=== PATIENT | male | born 1980 | race African-American/Black ===

== ENCOUNTER 2016-12-29 05:46 | Day surgery (SDC) | payer OTHER, SELFPAY ==
[~2016-12-29] VITALS: Ht 185.4 cm; Wt 88.5 kg
[2016-12-29] VITALS (12 sets, daily range): BP systolic 107–133; BP diastolic 59–88
[~2016-12-29 05:46] MED LIST: NKM
[2016-12-29] MEDS ORDERED: LR 1000ml 1,000 ML IVLG SCH (06:58)
--- NOTE | 2016-12-29 06:58 | Anethesia Preoperative Eval ---
Anesthesia Pre-op PMH/ROS General Date of Evaluation: Dec 29, 2016 Time of Evaluation: 07:41 Anesthesiologist: Sharif ASA Score: ASA 1 Mallampati Score Class I : Soft palate, uvula, fauces, pillars visible Class II: Soft palate, uvula, fauces visible Class III: Soft palate, base of uvula visible Class IV: Only hard plate visible Mallampati Classification: Class I Surgeon: Ronda Diagnosis: Bilateral Knee Pain Surgical Procedure: Bilateral Knee Atrhroscopy, Chondroplasty, Stem cell Injection Family History: no anesthesia problems Allergies: Coded Allergies: No Known Allergies (Unverified , 12/28/16) Medications: see eMAR Past Medical History PSxH Narrative: L Knee Arthroscopy Anesthesia Pre-op Phys. Exam Physician Exam Last Vital Signs Date Time Temp Pulse Resp B/P (MAP) Pulse Ox O2 Delivery O2 Flow Rate FiO2 12/29/16 06:35 98.1 58 20 133/78 100 Room Air Constitutional: NAD Neurologic: CN 2-12 intact Cardiovascular: RRR Respiratory: CTA Gastrointestinal: S/NT/ND Airway Exam Mallampati Score: Class I MO: full ROM: full Teeth: intact Anesthesia Pre-op A/P Risk Assessment & Plan Assessment: ASA 1 Plan: GA, BIS Status Change Before Surgery: No Pre-Antibiotics Dru grams Ancef IV Given Within 1 Hr of Incision: Yes Time Given: 07:56 Esa Olguin MD Dec 29, 2016 06:58
[2016-12-29] MEDS ORDERED: Norco 7.5mg/325mg tab ORAL PRN (07:00)
[2016-12-29] MEDS ORDERED: Atropine Inj 1mg/10ml Syr IV PRN (07:00)
[2016-12-29] MEDS ORDERED: fentaNYL 100 mcg/2 mL IV PRN (07:00)
[2016-12-29] MEDS ORDERED: Ketorolac 30mg Inj IV PRN (07:00)
[2016-12-29] MEDS ORDERED: LORazepam Inj 2mg/ml 1ml IV PRN (07:00)
[2016-12-29] MEDS ORDERED: Midazolam 2mg/2ml Inj IVP PRN (07:00)
[2016-12-29] MEDS ORDERED: Norco 5mg/325mg tab ORAL PRN ×2 (07:00→13:01)
[2016-12-29] MEDS ORDERED: Ketorolac 60mg Inj IV PRN (07:00)
[2016-12-29] MEDS ORDERED: Metoclopramide 10mg/2ml Inj IVP PRN (07:00)
[2016-12-29] MEDS ORDERED: DiphenhydrAMINE 50mg/ml Inj IVP PRN (07:00)
[2016-12-29] MEDS ORDERED: oxyCODONE HCL/Acetaminophen 5/325mg ORAL PRN (07:00)
[2016-12-29] MEDS ORDERED: Bupivacaine 0.5% Inj 30 ml vial INJ ONE (07:11)
[2016-12-29] MEDS ORDERED: Bupivacaine w/Epi 0.5% 30ml Vial INJ ONE (07:11)
[2016-12-29] MEDS ORDERED: EPINEPHrine 1mg/1ml Amp ONE (07:11)
[2016-12-29 07:13] LABS: ANION GAP 6 (5-15); CALCIUM 9.5 MG/DL (8.5-10.1); CARBON DIOXIDE 30 MMOL/L (21-32); CHLORIDE 103 MMOL/L (98-107); CREATININE 1.3 MG/DL (0.55-1.30); GLOMERULAR FILTRATION RATE > 60 mL/min (>60); POTASSIUM 4.3 MMOL/L (3.5-5.1); SODIUM 139 MMOL/L (136-145)
[2016-12-29 07:22] LABS: PROTHROMBIN TIME 10.5 SEC (9.30-11.50)
--- NOTE | 2016-12-29 07:30 | Pre-Procedure Note/Attestation ---
Pre-Procedure Note/Attestation Complete Prior to Procedure Planned Procedure: bilateral Procedure Narrative: bilateral knee scope with debridement and stem cell Indications for Procedure Pre-Operative Diagnosis: bilateral knee OA Attestation I attest that I discussed the nature of the procedure; its benefits; risks and complications; and alternatives (and the risks and benefits of such alternatives ), prior to the procedure, with the patient (or the patient's legal termite control service representative). I attest that, if there was a reasonable possibility of needing a blood transfusion, the patient (or the patient's legal termite control service representative) was given the [facility] standardized written summary, pursuant to the [employer] [place] Blood Safety Act ([place] Health and Safety Code # 1645, as amended). I attest that I re-evaluated the patient just prior to the surgery and that there has been no change in the patient's H&P, except as documented below: ELINOR ONEILL Dec 29, 2016 07:30
--- NOTE | 2016-12-29 07:33 | Immediate Post-Op Evaluation ---
Immediate Post-Op Evalulation Immediate Post-Op Evalulation Procedure: Bilateral Knee Atrhroscopy, Chondroplasty, Stem cell Injection Date of Evaluation: Dec 29, 2016 Time of Evaluation: 09:19 IV Fluids: 700 LR Blood Products: 0 Estimated Blood Loss: 25 Urinary Output: 0 Blood Pressure Systolic: 107 Blood Pressure Diastolic: 59 Pulse Rate: 67 Respiratory Rate: 18 O2 Sat by Pulse Oximetry: 100 Temperature (Fahrenheit): 97.1 Pain Score (1-10): 3 Nausea: No Vomiting: No Complications 0 Patient Status: awake, reacts, patent, extubated, none Hydration Status: adequate Dru Grams Ancef IV Given Within 1 Hr of Incision: Yes Time Given: 07:56 Esa Olguin MD Dec 29, 2016 07:33
--- NOTE | 2016-12-29 07:34 | 48 Hour Post Anesthesia Eval ---
Post Anesthesia Evaluation Procedure: Bilateral Knee Atrhroscopy, Chondroplasty, Stem cell Injection Date of Evaluation: Dec 29, 2016 Time of Evaluation: 11:26 Blood Pressure Systolic: 121 0: 78 Pulse Rate: 68 Respiratory Rate: 18 Temperature (Fahrenheit): 98.4 O2 Sat by Pulse Oximetry: 100 Airway: patent Nausea: No Vomiting: No Pain Intensity: 3 Hydration Status: adequate Cardiopulmonary Status: Stable Mental Status/LOC: patient returned to baseline Follow-up Care/Observations: 0 Post-Anesthesia Complications: 0 Follow-up care needed: ready to discharge Esa Olguin MD Dec 29, 2016 07:34
[2016-12-29] MEDS ORDERED: fentaNYL 100 mcg/2 mL IV ONE (07:45)
[2016-12-29] MEDS ORDERED: Dexamethasone 4mg/ml vial ONE (07:45)
[2016-12-29] MEDS ORDERED: LR 1000ml ONE (07:45)
[2016-12-29] MEDS ORDERED: Sodium Chloride 10ml vial INJ ONE (07:45)
[2016-12-29] MEDS ORDERED: Ketorolac 30mg Inj ONE (07:45)
[2016-12-29] MEDS ORDERED: Propofol 200mg/20ml IV ONE (07:45)
[2016-12-29] MEDS ORDERED: NS Irrig 4000ml IRRIG ONE (07:45)
[2016-12-29] MEDS ORDERED: Glycopyrrolate 0.2mg/ml 1ml Vial ONE (07:45)
[2016-12-29] MEDS ORDERED: Depo-Medrol 80mg Vial ONE (07:45)
[2016-12-29] MEDS ORDERED: Acetaminophen (Non formulary) 100 ML IV ONE (09:00)
[2016-12-29] MEDS: Hydromorphone 0.5mg/0.5ml inj IVP PRN ×2 (09:49→10:08)
[2016-12-29] MEDS ORDERED: D5 1/2NS 1,000 ML IV SCH (13:01)
[2016-12-29] MEDS ORDERED: HYDROmorphone 1mg/ml Carpuject SUBQ PRN (13:01)
[2016-12-29] MEDS ORDERED: Tylenol #3 tab (300mg/30mg) ORAL PRN (13:01)
--- NOTE | 2017-01-04 08:30 | Operative Note - Dictated ---
DATE OF OPERATION: 12/29/2016 PREOPERATIVE DIAGNOSES: 1. Left knee lateral meniscus tear with osteoarthritis. 2. Right knee lateral meniscus tear with osteoarthritis. POSTOPERATIVE DIAGNOSES: 1. Right knee patellofemoral osteoarthritis, grade 3 on 4. 2. Right knee posterior horn lateral meniscus tear. 3. Right knee lateral femoral condyle flap tear, grade 3 on 4 changes. 4. Loose body, right knee. 5. Left knee patellofemoral joint, grade 3 on 4 changes. 6. Left knee lateral meniscus tear. 7. Left knee anterior cruciate ligament tear with partial tear with instability. 8. Left knee lateral femoral condyle, grade 3 on 4 changes. PROCEDURES: 1. Right knee arthroscopic lateral meniscectomy. 2. Right knee arthroscopic excision of loose bodies. 3. Right knee arthroscopic chondroplasty, patellofemoral and lateral femoral condyles. 4. Left knee arthroscopic lateral meniscectomy. 5. Left knee arthroscopic chondroplasty, patellofemoral and lateral femoral condyles. 6. Left knee anterior cruciate ligament repair with Arthrocare 1 with tightening. 7. Left and right knee synovectomy. SURGEON: Adam Bond M.D. ANESTHESIOLOGIST: Esa Olguin M.D. DRUG ABUSE WORKER: None. PREOPERATIVE NOTE: This is a pleasant gentleman who had bilateral knee pain. He had surgery done in [place] two years ago, which resulted in knee pain and swelling. He got MRI showing these findings. I explained to him the surgery and the risks including infection, bleeding, anesthetic risks, neurovascular damage, DVT, PE, and failure of the operation. The patient agreed. Consents were obtained. OPERATIVE ROOM NOTE: Bone marrow-derived stem cells were injected into his knee after the procedure. Under the benefit of endotracheal intubation and general anesthetic, the patient's right knee was prepped and draped in appropriate manner. I injected bone marrow-derived regenerative cells along with platelet-rich plasma. I put . I then proceeded to start scoping the right knee. At the right knee, I put an anterolateral and anteromedial incision underneath the patella with grade 3 on 4 changes with changes in the trochlear groove for which I did a chondroplasty. Going to the medial joint line, there were minor cartilage changes, nothing severe. A synovectomy was done. Loose bodies were seen and excised. Grade 3 on 4 lateral meniscus tear was seen in the posterior horn for which a meniscectomy was done. There was a large lateral femoral condyle tear for which a chondroplasty was done with the Arthrocare Wand in order to preserve the cartilage. I irrigated the knee copiously, injected the knee with Depo-Medrol and injected the knee with bone marrow-derived stem cells as well as platelet-rich plasma. I proceeded then to the left knee. An inferolateral and inferomedial incision was done. The patellofemoral joint showed changes grade 3 on 4, for which a chondroplasty was done. An overlying synovectomy was done. At the medial joint line, there were minimal changes. ACL and PCL were intact, but the ACL was released. Upon probing it, I used the Arthrocare Wand to tighten it. [place] [address] [place]. I will need to contact the insurance company for an ACL repair to discern assessment afterwards if needed. I then went around to the lateral side. A lateral meniscectomy was done for the lateral meniscus tear. There was a lateral femoral condyle tear for which chondroplasty was done. I irrigated the wound copiously, injected the knee with bone marrow-derived regenerative cells and platelet-rich plasma. The patient went to the recovery room in stable condition. There were no complications. Adam Bond M.D. DR: ARNEL JOB#: [id number] CC: TERESA
--- NOTE | 2017-01-07 08:30 | Operative Note - Dictated ---
DATE OF OPERATION: 12/29/2016 PREOPERATIVE DIAGNOSES: 1. Left knee lateral meniscus tear with . 2. Right knee lateral meniscus tear . POSTOPERATIVE DIAGNOSES: 1. Right knee patellofemoral . 2. Right knee posterior horn lateral meniscus tear. 3. Right knee lateral femoral condyle flap tear grade III and IV changes. 4. Loose body, right knee. 5. Left knee patellofemoral joint with . 6. Left knee lateral meniscus tear. 7. Left knee anterior cruciate ligament tear with partial tear with instability. 8. Left knee lateral femoral condyle grade III and IV changes . PROCEDURES: 1. Right knee arthroscopic lateral meniscectomy. 2. Right knee arthroscopy with excision of loose bodies. 3. Right knee arthroscopic chondroplasty, patellofemoral and lateral femoral condyle. 4. Left knee arthroscopic lateral meniscectomy. 5. Left knee arthroscopic chondroplasty, patellofemoral and lateral femoral condyle. 6. Left knee anterior cruciate ligament repair with . 7. Left and right knee synovectomy. SURGEON: Adam Bond M.D. ANESTHESIOLOGIST: . LOADING DOCK HAND: None. PREOPERATIVE NOTE: This is a pleasant gentleman who had bilateral knee pain. He had a surgery done by in [place] two years ago, that resulted in knee pain and swelling . Explained to him the surgery and the risks being infection, bleeding, anesthetic risks, neurovascular damage, DVT, PE, and failure of the operation. The patient agreed. Consents were obtained. OPERATIVE ROOM NOTE: Bone marrow-derived stem cells were injected into his knee after the procedure. under the benefit of endotracheal intubation and general anesthetic, the patient's prepped and draped in appropriate manner. bone marrow . Was put off to the side. knee, then proceeded to scoping the right knee. With the right knee anterolateral and anteromedial incision . Going to the medial joint line, there were minor cartilage changes nothing severe. Meniscectomy was done. Loose bodies were seen and excised. lateral meniscus tear was seen in the posterior horn for which a wide meniscectomy there was a large lateral femoral condyle tear for which a chondroplasty was done . I irrigated the wound copiously, injected with bone marrow-derived stem cells as well as . After the procedure was done in the left knee, inferolateral and inferomedial incision was done. Patellofemoral joint showed changes pre and post for which a chondroplasty was done overlying synovectomy medial joint line, there were minimal changes. ACL and PCL were with the ACL release. to tighten it. It was cut afterwards ACL repair to lateral meniscectomy was done lateral meniscus tear with the lateral femoral condyle tear for which chondroplasty was done with bone marrow-derived regenerative cells and platelet rich plasma. The patient left the recovery room in stable condition. There were no complications. Adam Bond M.D. DR: ARNEL JOB#: [id number] CC:
== END 2016-12-29 12:45 | disposition home or self-care (01) ==
LOC: SUR 05:46
DX: S83.281A Other tear of lateral meniscus, current injury, right knee, initial encounter (principal); S83.512A Sprain of anterior cruciate ligament of left knee, initial encounter; S83.282A Other tear of lateral meniscus, current injury, left knee, initial encounter; M23.41 Loose body in knee, right knee; X58.XXXA Exposure to other specified factors, initial encounter; Y93.9 Activity, unspecified; Y92.9 Unspecified place or not applicable
CPT/HCPCS: 29875; 29881; 29888; 29999; 36415; 80048; 85610; 85730; 97161; J0171; J0690; J1100; J1170; J1885; J2250; J2405; J2704; J3010; J7120; 94003; 94150